=== PATIENT | female | born 1995 | race Hispanic/Latino ===

== ENCOUNTER 2024-05-10 21:08 | Emergency (ER) | payer OTHER ==
[~2024-05-10] VITALS: Ht 162.6 cm; Wt 72.6 kg
[2024-05-10 21:29] VITALS: BP 137/84; PULSE 78; RESP 20; TEMP 98; O2SAT 100
[2024-05-10 22:20] LABS: BASOPHIL % 0.3 % (0.1-1.2); EOSINOPHIL # 0.1 10^3/uL (0.0-0.2); EOSINOPHIL % 1.2 % (0.0-5.0); HEMATOCRIT(ML) 40.5 % (36.0-46.0); HEMOGLOBIN 13.1 g/dL (12.0-15.0); LYMPHOCYTES # 2.08 10^3/uL1 (1.0-4.8); LYMPHOCYTES % 24.1 % (24.0-44.0); MEAN CORP HGB 30.5 pg (26-34); MEAN CORP HGB CONCENTRATION 32.3 g/dL (33-36.5); MEAN CORP VOLUME 94.4 fL (78-100); MONOCYTES # 0.4 10^3/uL (0.3-0.8); MONOCYTES % 4.4 % (5.0-12.0); PLATELET COUNT 265 10^3/uL (150-400); RED BLOOD CELL 4.29 10^6/uL (4.00-5.20); RED CELL DISTRIBUTION WIDTH 12.8 % (11.5-14.5); WHITE BLOOD CELL 8.6 10^3/uL (4.5-11.0)
[2024-05-10 22:25] LABS: +ADD MANUAL DIFF(NO CHRG) NO
[2024-05-10 22:30] VITALS: BP 128/80; PULSE 68; RESP 20; TEMP 98; O2SAT 100
[2024-05-10 22:39] LABS: ALBUMIN(ML) 3.8 g/dL (3.4-5.0); ALBUMIN/GLOBULIN RATIO 1.117; ANION GAP 14.8; BUN/CREATININE RATIO 13.63 (10.0-20.0); CALCIUM 8.8 mg/dL (8.4-10.5); CARBON DIOXIDE 22.2 mmol/L (20.0-32); CREATININE SERUM 0.66 mg/dL (0.59-1.40); EST GFR, NON-AA 105.2 (>/=60)
[2024-05-10 23:13] VITALS: BP 120/78; PULSE 59; RESP 20; TEMP 98; O2SAT 100
== END 2024-05-10 23:18 | disposition home or self-care (01) ==
LOC: ER 21:08
DX: R42 Dizziness and giddiness (principal); R06.4 Hyperventilation; F41.0 Panic disorder [episodic paroxysmal anxiety]; Z90.49 Acquired absence of other specified parts of digestive tract
CPT/HCPCS: 36415; 80053; 83735; 85025; 93005; 99284